=== PATIENT | female | born 1945 | race Caucasian/White ===

== ENCOUNTER → 2016-05-21 | Outpatient (CLI) | payer MEDICARE ==
--- NOTE | 2016-05-22 07:52 | USB ---
Reason for exam: clinical finding. History: Patient has history of other cancer at age 30. Reductions of both breasts, 2000. Took hormonal contraceptives beginning at age 39. Took estrogen for 22 years. Indicated problem(s): pain in the right breast. Physical Findings: Nurse Summary: Patient complains of right lower quadrant pain x 1 year (nurse mm). US Breast RT Right breast ultrasound includes all four quadrants, the retroareolar region and axilla. Finding demonstrates no cystic or solid lesion seen. Area of pain is negative. These results were verbally communicated with the patient and result sheet given to the patient on 05/21/16. ASSESSMENT: Negative, BI-RAD 1 RECOMMENDATION: Routine screening mammogram of both breasts in 2 months. Back on schedule for June 2016. Manage patient on a clinical basis.
== END | disposition home or self-care (01) ==
LOC: RADUSWWP 14:03
PROVIDERS: ATTEND Obstetrics & Gynecology
DX: N64.4 Mastodynia (principal)

== ENCOUNTER → 2018-06-02 | Outpatient (CLI) | payer MEDICARE ==
--- NOTE | 2018-06-02 22:44 | ECHOS ---
STRESS ECHOCARDIOGRAM DATE OF STUDY: 06/02/2018 INDICATIONS: Left bundle branch block. MEDICATIONS: Atorvastatin, Zantac, hydrochlorothiazide. BASELINE HEART RATE: 68 BASELINE BLOOD PRESSURE: 108/82 MAXIMUM HEART RATE: 134 MAXIMUM BLOOD PRESSURE: 200/98 85% MPHR: 127 100% MPHR: 149 METS: 10.3 MAXIMUM STAGE REACHED: 3 TOTAL EXERCISE TIME: 9:00 CLINICAL INFORMATION: Patient was exercised for a total period of 9 minutes. Peak heart rate of 134 was achieved. Maximum blood pressure of 200/98 mmHg was noted. Resting EKG shows normal sinus rhythm with normal [place] interval and QRS duration and normal ST-T waves. No ST- segment depression suggestive of ischemia is noted. The baseline echocardiographic images reveal normal left ventricular chamber size with normal left ventricular systolic function. In the immediate post-exercise period, normal increase in the wall thickness and contractility is noted. FINAL IMPRESSION: This stress echocardiographic study is negative for stress-induced ischemia. EKG portion of the test is not suggestive of ischemia. Patient's exercise tolerance is normal. MMODL / IJN: [id number] /
== END | disposition home or self-care (01) ==
LOC: RADNMMAIN 09:01
PROVIDERS: ATTEND Internal Medicine Geriatric Medicine
DX: I44.7 Left bundle-branch block, unspecified (principal)
CPT/HCPCS: 93351

== ENCOUNTER → 2018-11-23 | Outpatient (CLI) | payer MEDICARE ==
--- NOTE | 2018-11-23 15:20 | US ---
EXAMINATION TYPE: US kidneys/renal and bladder DATE OF EXAM: 11/23/2018 COMPARISON: NONE CLINICAL HISTORY: N25.9 Unspecified disorder resulting from...... Pt states abnormal labs EXAM MEASUREMENTS: Right Kidney: 10.1 x 4.4 x 4.1 cm Left Kidney: 9.7 x 4.8 x 4.1 cm Right Kidney: Appeared wnl Left Kidney: Cyst lower= 1.2 x 1.1 x 0.9 cm/ echogenic focus mid= 0.4 cm Bladder: wnl Bilateral Jets seen: Only right jet visualized There is no evidence for hydronephrosis at this point in time. No suspicious masses. The urinary smith dder is anechoic. Bilateral ureteral jets are not seen. IMPRESSION: No hydronephrosis nor nephrolithiasis. Benign-appearing left renal cyst is seen and possi ble dystrophic cortical calcification versus nonobstructing 4 mm calculus in the left kidney within a peripheral minor calyx.
== END ==
LOC: RADUSWWP 14:35
PROVIDERS: ATTEND Internal Medicine Geriatric Medicine
DX: N28.1 Cyst of kidney, acquired (principal)
CPT/HCPCS: 76770

== ENCOUNTER → 2023-01-08 | Outpatient (CLI) | payer MEDICARE ==
--- NOTE | 2023-01-08 16:14 | US ---
EXAMINATION TYPE: US venous doppler duplex LE LT DATE OF EXAM: 01/08/2023 3:57 PM COMPARISON: NONE CLINICAL INDICATION: Female, 77 years old with history of M79.605 PAIN IN LEFT LEG; left leg pain for 5 days, no swelling SIDE PERFORMED: Left TECHNIQUE: The lower extremity deep venous system is examined utilizing real time linear array sonog brianna with graded compression, doppler sonography and color-flow sonography. VESSELS IMAGED: Common Femoral Vein Deep Femoral Vein Greater Saphenous Vein * Femoral Vein Popliteal Vein Small Saphenous Vein * Proximal Calf Veins Posterior tibial veins Peroneal veins (* superficial vessels) Left Leg: Negative for DVT - rouleaux flow within popiteal vein Bryologist notes: Spoke to Dr Martin on personal cell phone IMPRESSION: Some slow flow incidentally noted in the popliteal vein but otherwise, no evidence for DV T in the left lower extremity.
== END | disposition home or self-care (01) ==
LOC: RADUSWWP 15:30
PROVIDERS: ATTEND Internal Medicine Geriatric Medicine
DX: M79.605 Pain in left leg (principal)